=== PATIENT | female | born 1980 | race Asian ===

== ENCOUNTER 2020-09-28 18:01 | Emergency (ER) | payer OTHER ==
[~2020-09-28] VITALS: Ht 157.5 cm; Wt 104.3 kg
[~2020-09-28 18:01] MED LIST: BACTRIM DS TAB1 EACH PO; MECLIZINE HCL25 M1 PO; PROVENTIL HFA6.7 G1 INH; ZOFRAN ODT4 MG PO
[2020-09-28 18:47] LABS: ABSOLUTE NEUTROPHILS 6.4 thou/uL (1.4-8.2); BASOPHILS 0.8 % (0.0-2.0); EOSINOPHILS 1.8 % (0.0-3.0); HEMATOCRIT 48.3 % (37.0-47.0); HEMOGLOBIN 16.6 gm/dL (12.0-15.0); LYMPHOCYTES 22.5 % (24.0-44.0); MCH 34.9 pg (26.0-34.0); MCHC 34.3 g/dL (28.0-37.0); MCV 101.8 fL (80.0-100.0); MONOCYTES 10.9 % (1.0-8.0); PLATELET COUNT 302 thou/uL (150-400); RBC 4.75 mil/uL (4.20-5.00); RDW 15.1 % (10.5-14.5)
[2020-09-28 18:58] LABS: ANION GAP 9 mmol/L (7-16); BUN 10 mg/dL (7-18); CALCIUM 9.4 mg/dL (8.5-10.1); CHLORIDE 104 mmol/L (98-107); CO2 29 mmol/L (21-32); CREATININE 0.9 mg/dL (0.6-1.0); GLUCOSE 102 mg/dL (74-106); POTASSIUM 4.1 mmol/L (3.5-5.1); SODIUM 142 mmol/L (136-145)
[2020-09-28 19:10] LABS: ALBUMIN 3.1 g/dL (3.4-5.0); LIPASE 177 U/L (73-393); SGOT 85 U/L (15-37); SGPT 99 U/L (14-59); TOTAL BILIRUBIN 0.2 mg/dL (0.2-1.0); TOTAL PROTEIN 7.6 g/dL (6.4-8.2); TROPONIN-I <0.06 ng/mL (<0.06)
[2020-09-28 21:03] VITALS: BP 140/84
--- NOTE | 2020-09-29 13:13 | EKG ---
[address] [address] ELECTROCARDIOGRAM REPORT Name: AHSAN LUCIA [facility] [id number] Admission: 09/28/20 Attend Phys: Discharge: 09/28/20 Date of : 80 Report #: [id number] [facility] ED Test Date: 2020-09-28 Test Time: 18:06:32 Pat Name: AHSAN LUCIA Department: Room: Gender: F Ceiling Insulation Blower: JOE : 1980 Requested By: Abby Virk Order Number: [id number] MD: Yaya Allen Measurements Intervals [place] Rate: 91 P: 41 WA: 133 QRS: 51 QRSD: 79 T: 50 QT: 397 QTc: 489 Interpretive Statements Sinus rhythm Probable left atrial enlargement Compared to ECG 06/24/2010 05:52:59 Poor R-wave progression no longer present Electronically Signed On 09-29-2020 13:13:16 CDT by Yaya Allen [email or web address] <ELECTRONICALLY SIGNED> By: Yaya Allen MD 09/29/20 1313 180 05 MD ELIZABETH Bowden
== END 2020-09-28 21:03 | disposition home or self-care (01) ==
LOC: ER 18:01
PROVIDERS: Emergency Medicine
DX: R07.89 Other chest pain (principal); R25.2 Cramp and spasm; R03.0 Elevated blood-pressure reading, without diagnosis of hypertension; J45.909 Unspecified asthma, uncomplicated; F17.210 Nicotine dependence, cigarettes, uncomplicated; Z88.0 Allergy status to penicillin; Z90.49 Acquired absence of other specified parts of digestive tract